=== PATIENT | female | born 1970 | race Caucasian/White ===

== ENCOUNTER 2017-07-21 11:02 | Emergency (ER) | payer OTHER ==
[2017-07-21 11:14] VITALS: RESP 18; TEMP 98.2
--- NOTE | 2017-07-21 11:27 | CPEKG ---
Heart Rate: 67 RR Interval: 896 P-R Interval: 144 QRSD Interval: 94 QT Interval: 380 QTC Interval: 401 P [place]: 41 QRS [place]: 41 T Wave [place]: 34 EKG Severity - NORMAL ECG - EKG Impression: SINUS RHYTHM Electronically Signed By: Sydnee Guajardo 21-Jul-2017 13:45:04
[2017-07-21] MEDS ORDERED: NS 1,000 ML IV ONE (11:35)
[2017-07-21] MEDS ORDERED: fentaNYL 100 MCG/2 ML INJ IVP ONE (11:36)
[2017-07-21 11:45] LABS: PLATELET COUNT 319 10^3/uL (150-400)
[2017-07-21] MEDS ORDERED: IOPAMIDOL (ISOVUE-300) 100 ML BTL ONE (11:47)
[2017-07-21] MEDS ORDERED: IOPAMIDOL (ISOVUE 370) 100 ML BTL IV ONE (12:23)
[2017-07-21 13:04] VITALS: BP 139/56; PULSE 74; O2SAT 94
--- NOTE | 2017-07-21 13:22 | EDPHY ---
H & P Stated [facility] now with cough l cp with deep breath - Personal History LMP (Females 10-55): Over 28 Days Ago Current Tetanus/Diphtheria Vaccine: Yes - Medical/Surgical History Hx Asthma: No Hx Chronic Respiratory Disease: No Hx Diabetes: No Hx Cardiac Disease: No Hx Renal Disease: No Hx Cirrhosis: No Hx Alcoholism: No Hx HIV/AIDS: No Hx Splenectomy or Spleen Trauma: No Other PMH: denies - Social History Smoking Status: Never smoked Time Seen by Provider: 07/21/17 11:18 HPI/ROS: Chief complaint: Chest pain History of present illness: This is a 46-year-old female who presents to the emergency department for evaluation of chest pain. Patient reports the onset of pain over the last 1-2 days. Reports pain on the left side of the chest. It is a sharp pain. Worsened with touching the chest and taking deep breaths. She does have an occasional cough. She does state she just returned from a long trip a few days ago, traveling from [facility] back to the [facility]. She denies other associated signs or symptoms including no fevers or other cold symptoms, no pain or swelling in the legs, no history of trauma. Review of systems: A 10 point review of systems was obtained and other than described above was negative (Mingo Epstein) - Physical Exam Exam: General Appearance: Alert, nontoxic Eyes: Pupils equal and round no pallor or injection. ENT, Mouth: Mucous membranes moist. Respiratory: There are no retractions, lungs are clear to auscultation. Cardiovascular: Regular rate and rhythm. Gastrointestinal: Abdomen is soft and non tender, no masses, bowel sounds normal. Neurological: Alert and oriented x4. Strength and sensation intact and symmetrical. Skin: Warm and dry, no rashes. Musculoskeletal: There is tenderness over the left costosternal joints reproducing pain. Extremities are symmetrical, full range of motion. Psychiatric: Patient is oriented X 3, there is no agitation. (Mingo Epstein) Constitutional: Initial Vital Signs Temperature (C) 36.8 C 07/21/17 11:10 Heart Rate 70 07/21/17 11:10 Respiratory Rate 18 07/21/17 11:10 Blood Pressure 155/86 H 07/21/17 11:10 O2 Sat (%) 96 07/21/17 11:10 O2 Delivery Mode Room Air Allergies/Adverse Reactions: No Known Allergies Allergy (Unverified 07/21/17 11:10) Home Medications: Medication Instructions Recorded Hydrocodone/APAP 5/325 [[place] 1 tab PO Q6H #6 tab 07/21/17 5/325 (*)] Medical Decision Making - Diagnostics Imaging: Discussed imaging studies w/ call center assistant Radiologist ED Course/Re-evaluation: Patient is discussed with my secondary supervising physician Dr. Sydnee Guajardo. Patient presents to the emergency department for chest discomfort that is very pleuritic in nature. She is uncomfortable appearing however vital signs are stable. Blood studies and EKG unremarkable. I did have concern for potential PE given discomfort and recent extensive travel, CTA of the chest is negative. Given that the patient is tender to palpation over the chest wall at the costosternal joints I do suspect a possible musculoskeletal source. She will be discharged home. Home care is discussed. She is asked to follow up with her primary care doctor for recheck. Return precautions are given. (Mingo Epstein) Differential Diagnosis: Included but not limited to musculoskeletal pain, PE, cardiac dysrhythmia or ACS , pneumothorax, pulmonary infections (Mingo Epstein) Other Provider: The patient was evaluated and managed by the Physician Relief Captain. I discussed the patient's presentation and course with the midlevel provider with them and agree with the evaluation. My co-signature indicates that I have reviewed this chart and I agree with the findings and plan of care as documented. I am the secondary supervising physician. (Sydnee Guajardo) - Data Points Laboratory Results: Laboratory Results 07/21/17 11:20 07/21/17 11:20 Medications Given: Discontinued Medications Fentanyl (Sublimaze) 100 mcg IVP EDNOW ONE Stop: 07/21/17 11:37 Last Admin: 07/21/17 11:46 Dose: 100 mcg Sodium Chloride (Ns) 1,000 mls @ 0 mls/hr IV ONCE ONE; Wide Open PRN Reason: Protocol Stop: 07/21/17 11:36 Last Admin: 07/21/17 11:46 Dose: 1,000 mls Departure - Departure Disposition: Home, Routine, Self-Care Clinical Impression: Chest pain Condition: Good Instructions: Chest Pain (ED) Additional Instructions: Follow-up with a primary care doctor for recheck In regards to pain control see the following: Use ibuprofen [600] mg [3] times a day for the next 2-3 days for pain In addition You have been prescribed [[place]] for pain. [[place]] contains Tylenol, do not take extra Tylenol/acetaminophen/Apap with it. It is sedating. If symptoms worsen or new symptoms develop return to the emergency room for recheck Referrals: NONE *PRIMARY CARE P,. [Primary Care Provider] - As per Instructions Luigi Dan MD [[facility] Primary Care Provider] - As per Instructions Prescriptions: Hydrocodone/APAP 5/325 [[place] 5/325 (*)] 1 tab PO Q6H #6 tab
== END 2017-07-21 14:00 | disposition home or self-care (01) ==
DX: R07.9 Chest pain, unspecified (principal); E86.9 Volume depletion, unspecified
CPT/HCPCS: 96374; J3010; Q9967